=== PATIENT | female | born 1970 | race Two or more races ===

== ENCOUNTER 2016-06-21 10:36 | Emergency (ER) | payer BC ==
[~2016-06-21] VITALS: Ht 152.4 cm; Wt 70.3 kg
[2016-06-21 11:27] VITALS: BP 132/70
== END 2016-06-21 11:28 | disposition home or self-care (01) ==
LOC: ER 10:40
DX: L03.317 Cellulitis of buttock (principal); F17.200 Nicotine dependence, unspecified, uncomplicated; A49.02 Methicillin resistant Staphylococcus aureus infection, unspecified site
CPT/HCPCS: 99284; A4606; Z7610

== ENCOUNTER 2016-07-18 00:54 | Emergency (ER) | payer BC ==
--- NOTE | 2016-07-18 01:25 | NUR ---
CALLED FOR TRIAGE; NOT IN LOBBY.
--- NOTE | 2016-07-18 01:42 | NUR ---
CALLED AGIN; STILL NOT IN LOBBY.
--- NOTE | 2016-07-18 02:06 | NUR ---
STILL NOT IN LOBBY FOR TRIAGE.
[2016-07-18] MEDS ORDERED: METH10TA2 PO (14:31)
== END 2016-07-18 02:07 | disposition left against medical advice (07) ==
LOC: ER 00:54
DX: Z53.21 Procedure and treatment not carried out due to patient leaving prior to being seen by health care provider (principal)

== ENCOUNTER 2016-07-18 13:11 | Inpatient (IN) | payer BC ==
[~2016-07-18] VITALS: Ht 152.4 cm; Wt 70.3 kg
[2016-07-18] MEDS ORDERED: HYDROCODONE/APAP 5/325MG 1 EACH TABLET PO ONE (13:30)
[2016-07-18] MEDS ORDERED: LIDOCAINE 1%-EPI 1:100,000 20 ML VIAL TP ONE (13:30)
[2016-07-18] MEDS ORDERED: HYDROCODONE/APAP 5/325MG 1 EACH TABLET ONE (13:33)
--- NOTE | 2016-07-18 13:40 | NUR ---
PT BIB SELF C/O L HIP/GLUTE ABSCESS WHICH IS SWOLLEN AND REDDENED, NO EXUDATE. DENIES OTHER COMPLAINTS. RESP EVEN UNLABORED. SKIN WARM NONDIAPHORETIC. IN ER BED 14.
--- NOTE | 2016-07-18 13:40 | NUR ---
DR HELTON AT BEDSIDE FOR I&D
--- NOTE | 2016-07-18 13:56 | NUR ---
PAGED DR GARCÍA
[2016-07-18] MEDS ORDERED: VANCOMYCIN 1 GM in IV D5W 250 ML IV ONE (14:00)
[2016-07-18] MEDS ORDERED: LIDOCAINE HCL/PF 1% 30 ML VIAL TP ONE (14:00)
[2016-07-18] MEDS ORDERED: IV NS 0.9% 500 ML BAG IV ONE (14:00)
[2016-07-18] MEDS ORDERED: GENTAMICIN 80 MG in IV D5W 50 ML IV ONE (14:00)
--- NOTE | 2016-07-18 14:19 | NUR ---
PER TERRI MATTHEW TO INSERT MIDLINE. UNABLE TO OBTAIN IV ACCESS OR DRAW BLOOD.
[2016-07-18] MEDS ORDERED: METH10TA2 PO (14:31)
--- NOTE | 2016-07-18 14:34 | NUR ---
REPORT GIVEN TO DANA SANTAMARIA FOR ADMISSION
[2016-07-18] MEDS ORDERED: IV NS 0.9% 500 ML IV ONE (14:53)
[2016-07-18] MEDS ORDERED: IV SET PRIMARY 1 EA INFUS.SET MC ONE (14:53)
[2016-07-18] MEDS ORDERED: IV SET PRIMARY PUMP SET 1 EA INFUS.SET MC ONE ×2 (14:53→16:53)
[2016-07-18 15:10] LABS: BASOPHILS # (AUTO) 0.1 /CMM (0.0-0.2); BASOPHILS % (AUTO) 1.1 % (0.0-2.0); EOSINOPHILS # (AUTO) 0.1 /CMM (0.0-0.7); HEMATOCRIT 39 % (33-45); HEMOGLOBIN 13.2 g/dL (11.5-14.8); LYMPHOCYTES # (AUTO) 2.9 /CMM (0.8-4.8); LYMPHOCYTES % (AUTO) 37.6 % (20.0-44.0); MEAN CORPUSCULAR HEMOGLOBIN 32 PG (26.0-33.0); MEAN CORPUSCULAR HGB CONC 34 g/dl (31.0-36.0); MEAN CORPUSCULAR VOLUME 96 fL (82-100); MONOCYTES # (AUTO) 0.5 /CMM (0.1-1.30); NEUTROPHILS % (AUTO) 54.3 % (43.0-81.0); PLATELET COUNT (AUTO) 122 /CMM (150-450); RDW COEFFICIENT OF VARIATION 12.5 (11.5-15.0); RED BLOOD CELL COUNT(AUTO) 4.08 MIL/uL (4.0-5.2); WHITE BLOOD COUNT (AUTO) 7.6 K/uL (4.3-11.0)
[2016-07-18 15:19] LABS: CALCIUM, SERUM 8.4 mg/dL (8.5-10.1); CREATININE 0.8 mg/dL (0.6-1.3); POTASSIUM 4.5 mmol/L (3.5-5.1)
[2016-07-18 15:22] LABS: INR 1.12 (0.87-1.13); PROTHROMBIN TIME 11.7 SECS (9.5-12.7)
[2016-07-18 15:25] LABS: BILIRUBIN,DIRECT 0.3 mg/dL (0.0-0.2); BILIRUBIN,TOTAL 0.9 mg/dL (0.2-1.0); TOTAL PROTEIN, SERUM 7.6 g/dL (6.4-8.2)
--- NOTE | 2016-07-18 15:27 | NUR ---
DR SHAH AND FELIX METZGER INTERNET SPECIALIST AT BEDSIDE FOR I&D
[2016-07-18] MEDS ORDERED: MAG HYDROX/AL HYDROX/SIMETH 30 ML UDC PO PRN (15:30)
[2016-07-18] MEDS ORDERED: Z GUARD REMEDY 2 OZ OINT TP PRN (15:30)
[2016-07-18] MEDS ORDERED: ZOLPIDEM TARTRATE 5 MG TABLET PO PRN (15:30)
[2016-07-18] MEDS ORDERED: ACETAMINOPHEN 325 MG TABLET PO PRN (15:30)
[2016-07-18] MEDS ORDERED: ONDANSETRON HCL/PF 4 MG/2 ML VIAL IVP PRN (15:30)
[2016-07-18 15:32] LABS: LACTIC ACID 0.8 mmol/L (0.4-2.0)
--- NOTE | 2016-07-18 15:45 | NUR ---
RN INITIAL NOTES RECEIVED PT IN BED, A/O X4, ABLE TO MAKE NEEDS KNOWN, PT IS ON RA, SATING WELL, NO S/S OF RESP. DISTRESS OR SOB NOTED AT THIS TIME, PT IS AMBULATORY, PT HAS JULIÁN MIDLINE 18G, RUNNING NS @75ML/HR, C/D/I/PATENT, FLUSHING WELL, NO S/S OF INFECTION/ INFILTRATION NOTED AT THIS TIME, PT IS NOTED WITH LEFT BUTTOCK ABSCESS, PHOTOS TAKEN AND IN CHART, ALL SAFETY MEASURES IN PLACE AT ALL TIMES, CALL LIGHT WITHIN EASY REACH, WILL MONITOR PT CLOSELY FOR CHANGES
--- NOTE | 2016-07-18 15:55 | NUR ---
PT TRANSPORTED TO [facility] IN STABLE CONDITION
[2016-07-18 16:00] VITALS: BP 115/63
[2016-07-18 16:30] VITALS: BP 115/63
[2016-07-18] MEDS ORDERED: FEE PK DOSING 1 MIN EA MC ONE (16:42)
[2016-07-18] MEDS: PANTOPRAZOLE 40 MG TABLET.DR PO SCH (17:11)
[2016-07-18] MEDS: IV NS 0.9% 1,000 ML IV PRN (17:12)
[2016-07-18] MEDS ORDERED: SECONDARY IV SET 1 EA INFUS.SET MC ONE ×2 (17:15→23:09)
[2016-07-18] MEDS: CEFTRIAXONE 1 G in IV D5W 50 ML IV SCH (18:04)
[2016-07-18] MEDS: METHADONE HCL 10 MG TABLET PO SCH (18:05)
--- NOTE | 2016-07-18 18:30 | NUR ---
RN CLOSING NOTES PT REMAINED STABLE DURING SHIFT, ALL MEDICATIONS GIVEN, PT KEPT CLEAN AND DRY, IV, REMAINS C/D/I/PATENT, ALL TREATMENTS GIVEN, ALL SAFETY MEASURES IN PLACE AT ALL TIMES, CALL LIGHT WITHIN EASY, WILL GIVE REPORT TO PM RN FOR ALVINO
[2016-07-18] MEDS ORDERED: HYDROGEL DRESSING 90 GM TUBE TP PRN (19:30)
[2016-07-18 20:00] VITALS: BP 99/53
[2016-07-18] MEDS: HYDROCODONE/APAP 5/325MG 1 EACH TABLET PO PRN (20:10)
--- NOTE | 2016-07-18 21:10 | NUR ---
RN NOTE RECEIVED REPORT. PT RESTING IN BED WITH EYES CLOSED. BREATHING EVEN AND NON-LABORED. JULIÁN ML INTACT AND PATENT, TOLERATING FLUIDS WELL. S/P I AND D ON LEFT BUTTOCK, DRESSING INTACT AND DRY. NO S/S OF PAIN OR DISCOMFORT AT THIS TIME. WILL CONT TO MONTIOR. CALL LIGHT IN REACH.
[2016-07-18] MEDS ORDERED: MAGNESIUM HYDROXIDE 30 ML UDC PO PRN (22:00)
[2016-07-18] MEDS: VANCOMYCIN 0.75 GM in IV D5W 250 ML IV SCH (23:09)
[2016-07-19] MEDS: IV NS 0.9% 1,000 ML IV PRN (03:53)
[2016-07-19 04:00] VITALS: BP 90/50
[2016-07-19] MEDS: VANCOMYCIN 0.75 GM in IV D5W 250 ML IV SCH ×2 (06:12→16:27)
--- NOTE | 2016-07-19 06:26 | NUR ---
RN NOTE NO SIGNIFICANT CHANGES THIS SHIFT. PT AAOX4, NO C/O PAIN OR DISCOMFORT AT THIS TIME. L BUTTOCK DRESSING INTACT, CLEAN AND DRY. JULIÁN ML INTACT AND PATENT, TOLERATING FLUIDS WELL. VANOCO INFUSING NOW. ALL NEEDS ATTENDED TO, CALL LIGHT IN REACH WILL F/U WITH DAY SHIFT FOR ALVINO.
[2016-07-19 06:39] LABS: BASOPHILS % (AUTO) 0.4 % (0.0-2.0); EOSINOPHILS # (AUTO) 0.2 /CMM (0.0-0.7); EOSINOPHILS % (AUTO) 2.7 % (0.0-6.0); HEMATOCRIT 34 % (33-45); HEMOGLOBIN 11.7 g/dL (11.5-14.8); LYMPHOCYTES # (AUTO) 3.9 /CMM (0.8-4.8); MEAN CORPUSCULAR HEMOGLOBIN 33 PG (26.0-33.0); MEAN CORPUSCULAR HGB CONC 35 g/dl (31.0-36.0); MEAN CORPUSCULAR VOLUME 96 fL (82-100); MONOCYTES # (AUTO) 0.5 /CMM (0.1-1.30); NEUTROPHILS # (AUTO) 2.6 /CMM (1.8-8.9); NEUTROPHILS % (AUTO) 35.9 % (43.0-81.0); PLATELET COUNT (AUTO) 122 /CMM (150-450); RDW COEFFICIENT OF VARIATION 13.2 (11.5-15.0); RED BLOOD CELL COUNT(AUTO) 3.53 MIL/uL (4.0-5.2); WHITE BLOOD COUNT (AUTO) 7.3 K/uL (4.3-11.0)
[2016-07-19 07:09] LABS: ALBUMIN 2.5 g/dL (3.4-5.0); BILIRUBIN,TOTAL 0.9 mg/dL (0.2-1.0); CALCIUM, SERUM 7.9 mg/dL (8.5-10.1); CREATININE 0.8 mg/dL (0.6-1.3); MAGNESIUM 1.6 mg/dL (1.8-2.4); PHOSPHORUS 3.7 mg/dL (2.5-4.9); TOTAL PROTEIN, SERUM 6.7 g/dL (6.4-8.2)
--- NOTE | 2016-07-19 07:30 | NUR ---
initial note received patient resting in bed a+o x3, 7/10 pain. breathing even and unlabored on room air. L gluteal dressing with minimal drainage, will clean and replace per wound care order. JULIÁN midline patent, no complications, iv fluids infusion. discussed plan of care. call light in reach.
[2016-07-19 08:00] VITALS: BP 107/56
[2016-07-19] MEDS: METHADONE HCL 10 MG TABLET PO SCH (08:24)
[2016-07-19] MEDS: PANTOPRAZOLE 40 MG TABLET.DR PO SCH (08:24)
[2016-07-19] MEDS: HYDROCODONE/APAP 5/325MG 1 EACH TABLET PO PRN ×2 (08:24→20:03)
[2016-07-19] MEDS ORDERED: SECONDARY IV SET 1 EA INFUS.SET MC ONE (12:55)
[2016-07-19] MEDS: Magnesium 1GM/D5W 100ML PREMIX 100 ML IV SCH ×2 (13:16→14:46)
--- NOTE | 2016-07-19 13:21 | NUR ---
S[employer]OL SUPERINTENDENT WOUND CARE RECEIVED CONSULT, WOUND CARE WILL DEFER TO SURGEON AT THIS TIME SURGEON HAS DONE I+D/DEBRIDEMENT OF THE ABSCESS AND HAS PLACED TREATMENT ORDERS FOR THE CARE OF THE DEBRIDED ABSCESS. PATIENT WITH MARCO AT 21 AT THIS TIME. WOUND CARE WILL ASSIST IF REQUESTED.
--- NOTE | 2016-07-19 14:22 | NUR ---
WOUND CARE CONSULT: PATIENT SEEN AND SKIN ASSESSMENT DONE. PATIENT ALERT, ORIENTED, INDEPENDENT WITH BED MOBILITY, CONTINENT, MARCO 20. SEE TODAY'S SKIN ASSESSMENT IN PCS ALONG WITH RECOMMENDATIONS. RECOMMEND MOISTURE PROTECTION WITH Z GUARD PRN ORDERED. ALL DISCUSSED WITH NURSING STAFF. MD IN AGREEMENT WITH PLAN OF CARE. Addendum: 07/19/16 at 1423 by LUI SIMONS WNDNU Amended: Links added.
[2016-07-19 16:00] VITALS: BP 113/75
[2016-07-19] MEDS: LACTOBACILLUS RHAMNOSUS GG 1 EACH CAP.SPRINK PO SCH (16:28)
[2016-07-19] MEDS: CEFTRIAXONE 1 G in IV D5W 50 ML IV SCH (17:34)
--- NOTE | 2016-07-19 19:25 | NUR ---
closing note left patient in stable condition. breathing and LOC wnl. patient denies pain. provided wound care as ordered. educated patient on need to change dressing prn soiled, patient refused 2nd dressing change. endorsed to night nurse. call light in reach.
[2016-07-19 20:00] VITALS: BP 106/69
--- NOTE | 2016-07-19 20:00 | NUR ---
RN NOTES RECEIVED PT AWAKE ON BED ASSISTED TO THE BATHROOM FOR BLADDER. AFEBRILE. VS STABLE. PT IS AOX 4 ABLE TO MAKE KNOWN NEEDS. NOTED WITH LOOSE DRESSING ON LEFT BUTTOCK WHILE WALKING . TX DONE ORDERED. PT COMPLAINING OF PAIN AT SCALE OF 8/10 AFTER TREATMENT DONE. SITE ON JULIÁN MIDLINE RUNNING WITH NS @ 75 CC/HR TOLERATED WELL. KEPT PT CLEAN AND DRY. CALL LIGHT KEPT WITHIN EASY REACH. WILL CONTINUE TO MONITOR
[2016-07-20] MEDS: VANCOMYCIN 0.75 GM in IV D5W 250 ML IV SCH ×2 (00:04→06:07)
[2016-07-20] MEDS: HYDROCODONE/APAP 5/325MG 1 EACH TABLET PO PRN ×5 (03:56→20:53)
[2016-07-20 04:00] VITALS: BP 115/71
[2016-07-20] MEDS: IV NS 0.9% 1,000 ML IV PRN (06:10)
--- NOTE | 2016-07-20 06:56 | NUR ---
RN NOTES PT REMAINED IN STABLE CONDITION PER PATIENT LEFT BUTTOCK IS MORE PAINFUL THAN USUAL PAIN MEDICINE GIVEN ORDERED EFFECTIVE AFTER 30 MINUTES. PT CONTINUE ON ATB ORDERED NO ASE SHOWS. COMPLAINT WITH CARE PT ABLE TO STAND AND AMBULATE WITH LESS PRESSURE ON LEFT LEG DUE TO WOUND ON THE BUTTOCK. SAFETY PRECAUTION REMINDED. ALL NEEDS ATTENDED. KEPT PT CLEAN AND COMFORTABLE I N BED. WILL ENDORSED CONTINUITY OF CARE TO AM NURSE.
--- NOTE | 2016-07-20 07:25 | NUR ---
RN INTIAL NOTE RECEIVED PT FROM PM NURSE A/OX4 PT ABLE TO VERBALIZE NEEDS AND WANTS. PT CONTINENT BRP C/O OF PAIN 08/24. IV RAC #20G INTACT FLUSHED AND PATENT. PT ON RA NO ACUTE C/O OF SOB . PT KEPT WARM AND DRY. ALL SAFETY MEASURES IN PLACE. WILL CONTINUE TO MONITOR CLOSELY.
[2016-07-20 07:35] LABS: CALCIUM, SERUM 8.1 mg/dL (8.5-10.1); CREATININE 0.7 mg/dL (0.6-1.3); MAGNESIUM 1.9 mg/dL (1.8-2.4); POTASSIUM 4.1 mmol/L (3.5-5.1)
[2016-07-20 08:00] VITALS: BP 105/58
[2016-07-20] MEDS: METHADONE HCL 10 MG TABLET PO SCH (08:23)
[2016-07-20] MEDS: LACTOBACILLUS RHAMNOSUS GG 1 EACH CAP.SPRINK PO SCH ×2 (08:25→16:31)
[2016-07-20] MEDS: PANTOPRAZOLE 40 MG TABLET.DR PO SCH (08:25)
[2016-07-20] MEDS: VANCOMYCIN 1 GM in IV D5W 250 ML IV SCH (15:51)
[2016-07-20] MEDS: CEFTRIAXONE 1 G in IV D5W 50 ML IV SCH (17:31)
--- NOTE | 2016-07-20 19:21 | NUR ---
RN CLOSING NOTE RECEIVED PT FROM PM NURSE A/OX4 PT ABLE TO VERBALIZE NEEDS AND WANTS. PT CONTINENT BRP IV RAC #20G INTACT FLUSHED AND PATENT. PT ON RA NO ACUTE C/O OF SOB . PT KEPT WARM AND DRY. ALL SAFETY MEASURES IN PLACE. ALL MEDICATIONS DONE AND ALL ORDERS CARRIED OUT. REPORT GIVEN TO PM NURSE FOR ALVINO.
--- NOTE | 2016-07-20 19:30 | NUR ---
RN NOTES RECEIVED PT STANDING IN BEDSIDE OF THE BED, PER PT SHE WANTS TO MOVE AND DO SOME EXERCISES. PT IS AOX 4 ABLE TO VERBALIZED NEEDS UNDERSTAND DSE. PROCESS AND PLAN OF CARE DURING STAY. AFEBRILE. COMPLAINING OF PAIN BUT TOLERABLE AT THIS TIME AND WANTED PAIN MEDICINE TO BE GIVEN AFTER WOUND TREATMENT ON LEFT WOUND. IV SITE ON JULIÁN MIDLINE WITH NS @ 75 CC/HR INTACT AND PATENT. PT IS CLEANED AND DRY. ABLE TO AMBULATE REMINDED FOR SAFETY. ENCOURAGED TO USED CALL LIGHT FOR ASSISTANCE. KEPT PT CLEAN AND DRY. WILL CONTINUE TO MONITOR.
[2016-07-20 20:00] VITALS: BP 101/64
[2016-07-21] MEDS: IV NS 0.9% 1,000 ML IV PRN (02:40)
[2016-07-21] MEDS: VANCOMYCIN 1 GM in IV D5W 250 ML IV SCH ×2 (02:40→14:34)
[2016-07-21] MEDS: HYDROCODONE/APAP 5/325MG 1 EACH TABLET PO PRN ×2 (02:49→14:34)
[2016-07-21 04:00] VITALS: BP 133/64
--- NOTE | 2016-07-21 07:11 | NUR ---
RN NOTES PT REMAINED INSTABLE CONDITION THROUGHOUT THE SHIFT ALL NEEDS ATTENDED. PAIN MEDICINE EFFECTIVE TO PATIENT. DRESSING CHANGE PT WANTED. AFEBRILE. VS STABLE. IV INTACT AND PATENT WITH ONGOING IV NS @ 75 CC/HR. IV ATB TOLERATED WELL WITHOUT ASE SHOWS. KEPT PT CLEAN AND COMFORTABLE IN BED. CALL LIGHT KEPT WITHIN EASY REACH. WILL ENDORSED CONTINUITY OF CARE TO AM NURSE.
[2016-07-21] MEDS: PANTOPRAZOLE 40 MG TABLET.DR PO SCH (07:30)
--- NOTE | 2016-07-21 07:30 | NUR ---
INITIAL NOTE PATIENT RESTING IN BED. LOC AND BREATHING WNL. 7/10 PAIN. SKIN WARM AND DRY. AMBULATES WITH STEADY GAIT. JULIÁN MID LINE PATENT, NO COMPLICATION. IV FLUIDS INFUSING. ASSESSED NEEDS+ PROVIDED, PATIENT COMFORTABLE. DISCUSSED PLAN OF CARE. CALL LIGHT IN REACH.
[2016-07-21 08:00] VITALS: BP 99/63
[2016-07-21 08:07] LABS: CALCIUM, SERUM 8.1 mg/dL (8.5-10.1); CREATININE 0.8 mg/dL (0.6-1.3)
[2016-07-21] MEDS: METHADONE HCL 10 MG TABLET PO SCH (09:26)
[2016-07-21] MEDS: LACTOBACILLUS RHAMNOSUS GG 1 EACH CAP.SPRINK PO SCH ×2 (09:26→16:11)
[2016-07-21] MEDS: CEFTRIAXONE 1 G in IV D5W 50 ML IV SCH (16:12)
--- NOTE | 2016-07-21 19:03 | NUR ---
UAT TESTER NOTE PATIENT HAS ORDER FOR DISCHARGE AFTER DR. SHAH AND JASON SAW PATIENT. INFORMED PATIENT. PROVIDED PRESCRIPTION FROM JASON ROWELL FOR ATBX AND NORCO. PROVIDED ALL PAPER WORK AND EDUCATION AND WOUND CARE INSTRUCTION. CHARGE NURSE REMOVED MIDLINE. NO COMPLICATIONS. WOUND PHOTO IN CHART. PT AMBULATORY WITH STEADY GAIT.
--- NOTE | 2016-07-21 19:34 | NUR ---
ACCOMPANIED BY , AMBULATING. PATIENT AND FAMILY VERBALIZED UNDERSTANDING OF WOUND CARE, PRESCRIPTIONS AND ADVERSE EVENTS AND TO FOLLOW UP WITH PRIMARY MD IN 1 WEEK.
== END 2016-07-21 20:08 | disposition home or self-care (01) | DRG 364 ==
LOC: ER 13:40 → MEDSG1 14:29
PROVIDERS: ADMIT Internal Medicine; ATTEND Internal Medicine
PROC: 0KBP0ZZ Excision of Left Hip Muscle, Open Approach (ICD-10-PCS; principal; 2016-07-18)
PROC: 05H533Z Insertion of Infusion Device into Right Subclavian Vein, Percutaneous Approach (ICD-10-PCS; principal; 2016-07-18)
DX: L02.31 Cutaneous abscess of buttock (principal); D69.6 Thrombocytopenia, unspecified; L03.317 Cellulitis of buttock; F17.200 Nicotine dependence, unspecified, uncomplicated; G89.29 Other chronic pain
CPT/HCPCS: 36415; 71010-TC; 80048-TC; 80053-TC; 80061-TC; 80076-TC; 80202-TC; 83605-TC; 83735-TC; 84100-TC; 85025-TC; 85730-TC; 86850-TC; 87040-TC; 87081-TC; A4606; A6248; A6253; A6403; J0696; J1580; J3370; J3475; J3490; J7030; J7040; J7060; Z7610

== ENCOUNTER 2022-08-19 12:11 | Emergency (ER) | payer BC, OTHER ==
[~2022-08-19] VITALS: Ht 172.7 cm; Wt 78.0 kg
[~2022-08-19 12:11] MED LIST: METH10TA2 PO
--- NOTE | 2022-08-19 12:15 | NUR ---
c/o sudden onset right shoulder pain radiates to right side of the body since yesterday, denies any recent fall or injury
[2022-08-19] MEDS ORDERED: KETOROLAC TROMETHAMINE INJ 30 MG/ML VIAL ONE (12:59)
[2022-08-19] MEDS ORDERED: CYCLOBENZAPRINE 10 MG TABLET ONE (13:00)
[2022-08-19] MEDS ORDERED: CYCLOBENZAPRINE 10 MG TABLET PO ONE (13:00)
[2022-08-19] MEDS ORDERED: KETOROLAC TROMETHAMINE INJ 30 MG/ML VIAL IM ONE (13:00)
--- NOTE | 2022-08-19 13:30 | NUR ---
PATIENT STATES THAT SHE IS FEELING BETTER . AWAITING FOR DISCHARGE PAPER
[2022-08-19] MEDS ORDERED: AZIT250T13 PO (14:00)
[2022-08-19] MEDS ORDERED: CYCL10TA9 PO (14:00)
--- NOTE | 2022-08-19 14:07 | NUR ---
Patient discharged to home in stable condition. Written and verbal after care instructions given. Patient verbalizes understanding of instruction.
[2022-08-19 14:08] VITALS: BP 129/77
== END 2022-08-19 14:53 | disposition home or self-care (01) ==
LOC: ER 12:29
DX: M62.838 Other muscle spasm (principal); M25.511 Pain in right shoulder; J18.8 Other pneumonia, unspecified organism; F17.200 Nicotine dependence, unspecified, uncomplicated; Z79.899 Other long term (current) drug therapy
CPT/HCPCS: 99284; 71045; 96372; 73030; J1885